=== PATIENT | female | born 1960 | race Caucasian/White ===

== ENCOUNTER 2023-11-10 10:20 | Outpatient (AMB) | payer OTHER, SELFPAY ==
--- NOTE | 2023-11-10 10:23 | MHC.PC.OV ---
Vital Signs 11/10/23 10:24 Height 5 ft 6 in Weight 232 lb BMI 37.4 BP 134/78 Blood Pressure Location Rt brachial Position Sitting Pulse 84 Pulse Source Pulse Oximeter Pulse Oximetry (%) 96 Oxygen Delivery Method Room Air Intake Visit Reasons: Est Care Intake Note: Pt is here today for New patient visit. Allergies No Known Allergies [No Known Allergies*] Allergy (Unverified 11/10/23 10:28) Medication List - Last Reconciled 11/10/23 by Solange Galaviz MD albuterol 90 mcg/actuation mcg inhalation amoxicillin 800 mg PO BID Tobacco use date assessed: 11/10/23 Fall risk assessment: No Falls in past year Last assessed Fall Risk: 11/10/23 Dental Screening Dental Screen Date: 11/10/23 Did you have a dental visit in the last 12 months?: Yes Did you have a dental problem in the last 6 months where you did not have access to dental care?: No Was dental information given to patient?: Patient has dentist HPI Est Care HPI Details Pt presents for [employer] visit. Past medical history includes depression with hospitalization about 10 years ago currently not on medications but established with a psychiatrist. Type 2 diabetes diet controlled, patient has stopped taking her medications 2 years ago. History of asthma patient has not been using inhalers but denies shortness or breath wheezing or cough. Patient complains of chronic bilateral lateral thigh pain worse when walking longer distance. She denies groin pain or lower back pain. Patient has been riding her bike regularly and lost 30 lb in the last 6 months trying to eat healthier and increasing physical activity. [facility] Surgical History (Updated 11/10/23 @ 11:18 by Solange Galaviz MD) History of bilateral carpal tunnel release Family History Father Stroke Mother Lung cancer Social History (Updated 11/10/23 @ 11:19 by Solange Galaviz MD) Household Members Other:: lives alone, 2 adult children, on mental health disability, Housing: House Patient Tobacco Use Status: Never used Tobacco e-Cigarette/Vaping Use: Never Used service: No Current occupational status: disabled Cognitive needs: No Hearing needs: No Vision needs: No Questionnaire PHQ-9 Over the last 2 weeks, how often have you been bothered by any of the following problems? 1. Little interest or pleasure in doing things: not at all 2. Feeling down, depressed, or hopeless: not at all 3. Trouble falling or staying asleep, or sleeping too much: not at all 4. Feeling tired or having little energy: several days 5. Poor appetite or overeating: not at all 6. Feeling bad about yourself - or that you are a failure or have let yourself or your family down: not at all 7. Trouble concentrating on things, such as reading the newspaper or watching television: not at all 8. Moving or speaking so slowly that other people could have noticed. Or the opposite - being so fidgety or restless that you have been moving around a lot more than usual: not at all 9. Thoughts that you would be better off or of hurting yourself in some way: not at all Total score: 1 Depression Screening Interpretation: Negative Depression Screening Done: Yes 76897 - PHQ-9 Billing: Yes Source: Developed by Drs. Jerald Chu, Yris Gao, Amadeo Goldman and colleagues, with an educational andi from [employer]. Thrive Questionnaire Date Thrive assessed: 11/10/23 I am a: Patient What is your living situation today?: I have a steady place to live Within the past 12 months, did the food you bought not last and you didn't have the money to get more?: Never true Within the past 12 months, did you worry whether your food would run out before you got money to buy more?: Never true Do you have trouble paying for medicines?: I choose not to answer this question Do you have trouble getting transportation to medical appointments?: No Do you have trouble paying your heating and electricity bill?: No Do you have trouble taking care of your child, family member or friend?: No Do you have trouble with day-to-day activities such as bathing, preparing meals, shopping, managing finances, etc.?: No Are you currently unemployed and looking for a job?: Yes Are you interested in more education?: No Please select the resources that you would like help with: Housing/Long Term Currently or been in a relationship where the following occur: No concerns reported THRIVE Score: 0 AUDIT C Alcohol Use Questionnaire (AUDIT-C) 1. How often do you have a drink containing alcohol?: Never 3. How often do you have six or more drinks on one occasion?: Never Total Score: 0 NED-7 AMB Questionnaire NED-7 Date NED - 7 assessed: 11/10/23 Feeling nervous, anxious, or on edge: 0 = Not at all Not being able to stop or control worryin = Not at all Worrying too much about different things: 0 = Not at all Trouble relaxin = Not at all Being so restless that it is hard to sit still: 0 = Not at all Becoming easily annoyed or irritable: 0 = Not at all Feeling afraid as if something awful might happen: 0 = Not at all Total NED-7 score (0-4 normal; 5-9 mild; 10-14 moderate; 15-21 severe): 0 Source: Developed by Drs. Jerald Chu, Yris Gao, Amadeo Goldman and colleagues, with an educational andi from [employer]. NED-7 Assessment Billing NED-7 Assessment Tool: NED-7 Assessment 91322 Review of Systems Const All systems reviewed & are unremarkable except as noted in HPI and below Reports no additional complaints Eyes Reports no additional complaints ENT Reports no additional complaints Card Reports no additional complaints Resp Reports no additional complaints GI Reports no additional complaints Reports no additional complaints Physical exam (Primary Care) Vital Signs: Last Vital Signs Pulse 84 11/10/23 10:24 BP 134/78 11/10/23 10:24 Pulse Ox 96 11/10/23 10:24 Oxygen Delivery Method Room Air 11/10/23 10:24 BMI result Body Mass Index 37.4 Tobacco/Smoking Status: Tobacco use Status Tobacco use date assessed 11/10/23 11/10/23 10:35 Patient Tobacco Use Status Never used Tobacco 11/10/23 10:35 e-Cigarette/Vaping Use Never Used 11/10/23 10:35 PHQ-9: PHQ-9 Score PHQ-9: Total score 1 11/10/23 10:35 Depression Screening Interpretation: Negative Thrive Assessment: Date of Thrive Assessment Date Thrive assessed 11/10/23 11/10/23 10:35 Currently or been in a relationship where the following occur: No concerns reported Const General: no acute distress HENMT Head: Yes normal to inspection Ears: hearing grossly normal bilaterally General nose exam: Normal external nose present Face and sinus: Yes normal facial exam Mouth: Normal oral and palatal mucosa present Throat: Yes posterior oropharynx normal Eyes General: appearance normal, both eyes and all related structures Neck Neck: Yes no lymphadenopathy and Yes supple Resp Effort & Inspection: normal respiratory effort Auscultation: clear to auscultation bilaterally Cardio Rhythm: regular rhythm Heart sounds: S1 normal heart sound present and S2 normal heart sound present GI Inspection: Yes normal to inspection Palpation (GI): Soft to palpation Percussion: Yes normal to percussion Auscultation: normal bowel sounds Extrem Other: There is decreased range of motion of both hips lateral trochanteric area reproducible tenderness, Assessment and Plan Assessment & Plan (1) Annual physical exam: Code(s): Z00.00 - Encounter for general adult medical examination without abnormal findings Plan: well balanced diet, regular exercise, patient will have a fasting blood work today. (2) Depression: Comment: hospitalized 2013, stopped taking meds, f/u with psychiatry Code(s): F32.A - Depression, unspecified Plan: f/u with psychiatry (3) Hyperglycemia: Code(s): R73.9 - Hyperglycemia, unspecified Plan: ADA diet, regular exercise, weight loss discussed (4) Trochanteric bursitis of both hips: Code(s): M70.61 - Trochanteric bursitis, right hip; M70.62 - Trochanteric bursitis, left hip Plan: refer to PT (5) Hx of colonoscopy: Comment: 2016 negative Code(s): Z98.890 - Other specified postprocedural states Orders: Orders Comprehensive [place]. Panel Fast Today R73.9 - Hyperglycemia, unspecified, Z00.00 - Encounter for general adult medical examination without abnormal findings Lipid Panel Today R73.9 - Hyperglycemia, unspecified, Z00.00 - Encounter for general adult medical examination without abnormal findings TSH reflex Free T4 Today R73.9 - Hyperglycemia, unspecified, Z00.00 - Encounter for general adult medical examination without abnormal findings Complete Blood Count Auto Diff Today R73.9 - Hyperglycemia, unspecified, Z00.00 - Encounter for general adult medical examination without abnormal findings Hemoglobin A1c Today R73.9 - Hyperglycemia, unspecified, Z00.00 - Encounter for general adult medical examination without abnormal findings Microalbumin, Random (w Creat) Today R73.9 - Hyperglycemia, unspecified, Z00.00 - Encounter for general adult medical examination without abnormal findings UA w Microscopic Today R73.9 - Hyperglycemia, unspecified, Z00.00 - Encounter for general adult medical examination without abnormal findings Coding Level of Care Code New Pt Level 4 (83329) Diagnoses Annual physical exam Z00.00 Depression F32.A Hyperglycemia R73.9 Trochanteric bursitis of both hips M70.61; M70.62 Hx of colonoscopy Z98.890 Additional Codes NED-7 Assessment Billing - NED-7 Assessment Tool: NED-7 Assessment 77770 ([id number])
[2023-11-10 10:24] VITALS: BP 134/78; PULSE 84; O2SAT 96; BMI 37.4
== END 2023-11-10 11:33 | disposition home or self-care (01) ==
PROVIDERS: PCP Internal Medicine; Visit Provider Internal Medicine
DX: R73.9 Hyperglycemia, unspecified (principal); F32.A Depression, unspecified; M70.61 Trochanteric bursitis, right hip; M70.62 Trochanteric bursitis, left hip; Z98.890 Other specified postprocedural states
CPT/HCPCS: 99204

== ENCOUNTER 2023-11-10 11:36 | Outpatient (REF) | payer OTHER, SELFPAY ==
[2023-11-10 13:05] LABS: MANUAL DIFF FLAG NO
[2023-11-10 13:18] LABS: Basophils Absolute Auto 0.1 X10*3/uL (0.0-0.2); Basophils Percent Auto 1.1 % (0-2); Eosinophils Absolute Auto 0.2 X10*3/uL (0.0-0.4); Eosinophils Percent Auto 3.2 % (0-4); Hematocrit 44.4 % (37.0-47.0); Imm Gran Abs Auto 0.01 X10*3/uL (0.00-0.03); Imm Gran Pct Auto 0.2 % (0.0-0.4); Lymphocytes Absolute Auto 1.4 X10*3/uL (1.2-4.9); Lymphocytes Percent Auto 24.2 % (20-40); Mean Corpuscular HGB Conc 33.8 g/dl (31.0-35.0); Mean Corpuscular Hemoglobin 28.8 pg (27.0-33.0); Mean Corpuscular Volume 85.2 fL (80.0-98.0); Mean Platelet Volume 10.7 fL (9.4-12.3); Monocytes Absolute Auto 0.4 X10*3/uL (0.1-1.2); Monocytes Percent Auto 7.5 % (2-11); Neutrophils Absolute Auto 3.6 x10*3/uL (2.0-8.3); Neutrophils Percent Auto 63.8 % (45-73); Platelet Count 157 X10*3/uL (160-400); Red Blood Count 5.21 X10*6/uL (4.20-5.50); Red Cell Distribution Width 13.5 % (11.0-16.0); White Blood Count 5.6 X10*3/uL (4.8-10.8)
[2023-11-10 13:40] LABS: Alanine Aminotransferase 22 U/L (0-31); Albumin Level 4.6 g/dL (3.5-5.0); Alkaline Phosphatase 91 U/L (39-117); Anion Gap 13 (12-20); Aspartate Amino Transferase 38 U/L (5-31); Bilirubin Total 0.9 mg/dL (0.0-1.0); Blood Urea Nitrogen 12 mg/dL (9-16); Carbon Dioxide 26 mmol/L (22-29); Chloride 104 mmol/L (96-108); Cholesterol 346 mg/dL (<200); Estimated Glomerular Filt Rate > 60; Glucose Fasting 114 mg/dL (60-99); HDL Cholesterol 66 mg/dL (>40); LDL Cholesterol Calculated 250 mg/dL (<100); Sodium 139 mmol/L (135-145); Total Protein 8.1 g/dL (6.5-8.0); Triglycerides 154 mg/dL (<150)
[2023-11-10 13:44] LABS: Estimated Average Glucose 131 mg/dL; Hemoglobin A1c % 6.2 % (<6.0)
[2023-11-10 13:46] LABS: TSH reflex Free T4 49.74 uIU/mL (0.32-4.0)
[2023-11-10 14:44] LABS: Free T4 (Free Thyroxine) < 0.42 ng/dL (0.71-1.85)
== END 2023-11-10 11:37 | disposition home or self-care (01) ==
LOC: HO.HMGCLDS 11:36
PROVIDERS: PCP Internal Medicine; Visit Provider Internal Medicine
DX: Z00.00 Encounter for general adult medical examination without abnormal findings (principal); R73.9 Hyperglycemia, unspecified
CPT/HCPCS: 36415; 80053; 80061; 83036; 84439; 84443; 85025

== ENCOUNTER 2023-11-11 08:30 | Outpatient (REF) | payer OTHER, SELFPAY ==
[2023-11-11 13:28] LABS: Appearance Urine Clear; Color Urine Yellow; Glucose Urine UA Negative (Negative); Leukocyte Esterase Urine Negative (Negative); Nitrite Urine Negative (Negative); PH 5.5 (5.0-9.0); Urine Blood Negative (Negative); Urine Ketones Negative (Negative); Urine Protein Negative (Neg-Trace)
[2023-11-11 13:31] LABS: Bacteria Urine None Seen (None Seen); Hyaline Casts Urine 0-2 /LPF (0-2); RBC Urine 0-2 /HPF (0-2); Squamous Epithelial Cell Urine 0-2 /HPF (0-2); WBC Urine 0-5 /HPF (0-5)
[2023-11-11 14:34] LABS: Creatinine Urine 45.69 mg/dL; Microalbum/Creatinine Ratio Ur 76.6 ug/mg cr (<30)
== END 2023-11-11 08:31 | disposition home or self-care (01) ==
LOC: HO.HMGCLNP 08:30
PROVIDERS: PCP Internal Medicine; Visit Provider Internal Medicine
DX: Z00.00 Encounter for general adult medical examination without abnormal findings (principal); R73.9 Hyperglycemia, unspecified
CPT/HCPCS: 81001; 82043; 82570

== ENCOUNTER 2023-12-24 09:32 | Outpatient (REF) | payer OTHER, SELFPAY ==
[2023-12-24 14:31] LABS: Cholesterol 283 mg/dL (<200); HDL Cholesterol 63 mg/dL (>40); LDL Cholesterol Calculated 193 mg/dL (<100); TSH reflex Free T4 5.57 uIU/mL (0.32-4.0); Triglycerides 139 mg/dL (<150)
[2023-12-24 15:07] LABS: Free T4 (Free Thyroxine) 0.87 ng/dL (0.71-1.85)
== END 2023-12-24 09:33 | disposition home or self-care (01) ==
LOC: HO.HMGCLDS 09:32
PROVIDERS: PCP Internal Medicine; Visit Provider Internal Medicine
DX: E03.9 Hypothyroidism, unspecified (principal); E78.5 Hyperlipidemia, unspecified
CPT/HCPCS: 36415; 80061; 84439; 84443

== ENCOUNTER 2023-12-26 07:04 | Outpatient (REF) | payer OTHER, SELFPAY ==
--- NOTE | ~2023-12-26 | MR_ITS ---
EXAMINATION: MR LUMBAR SPINE WITHOUT CONTRAST CLINICAL INFORMATION: Difficulty walking. Lower extremity weakness. COMPARISON: None available. TECHNIQUE: MRI of the lumbar spine was obtained using routine sequences without contrast. FINDINGS: Last rib-bearing vertebra labeled T12. Multilevel marginal osteophyte formation and disc desiccation more conspicuous at L5-S1. Moderate type II endplate changes, L5-S1. Modic type I endplate changes, L1-2. Bone marrow STIR signal at the endplates of L1 to. Focal hyperintense T2 signal in the posterior intervertebral disc L4-5 likely annular fissure. Grade 1 retrolisthesis, L1-2. Conus medullaris ends at pedicle of L1 with normal signal. T12-L1: No compression upon the neural elements. L1-2: Broad-based disc bulging. Facet joint hypertrophy. Reduced AP diameter of the thecal sac and the neural foramina. No compression upon neural elements. L2-3: Broad-based disc bulging. Facet joint and ligamentum flavum hypertrophy. Reduced AP diameter of the thecal sac and neuroforamina encroaching the neural elements. L3-4: Broad-based disc bulging. Facet joint and ligamentum flavum hypertrophy. CSF effacement of the thecal sac and central spinal canal stenosis encroaching likely compressing the neural elements. Bilateral neuroforamina narrowing encroaching the exiting roots, left greater than the right side. L4-5: Broad-based disc bulging. Focal hyperintense T2 signal in the disc likely annular fissure. Bilateral facet hypertrophy. Reduced AP diameter of the thecal sac and bilateral neuroforamina narrowing encroaching the neural elements. L5-S1: Broad-based disc bulging abutting the S1 nerve roots on the lateral recesses. Facet joint hypertrophy. Bilateral neuroforamina stenosis encroaching the exiting roots. No prevertebral compartment hematoma, mass or fluid collection. MR/MR lumbar spine wo con IMPRESSION: Multilevel lumbar spondylosis more conspicuous at L3-4 and to a lesser extent L4-5 and L5-S1 resulting in central spinal canal stenosis at L3-4 encroaching likely compressing the neural elements of the thecal sac and the exiting nerve roots. Electronically signed by: Robb Mcgregor MD 01/27/2024 10:11 AM EDT
== END 2023-12-26 07:05 | disposition home or self-care (01) ==
LOC: HO.MRI 07:04
PROVIDERS: PCP Internal Medicine; Visit Provider Internal Medicine
DX: M48.061 Spinal stenosis, lumbar region without neurogenic claudication (principal)
CPT/HCPCS: 72148

== ENCOUNTER → 2023-12-26 07:14 | Outpatient (BNV) | payer OTHER, SELFPAY | PROVIDERS: PCP Internal Medicine; Visit Provider Radiology Diagnostic Radiology | DX: R53.1 Weakness (principal) | CPT/HCPCS: 72148 ==

== ENCOUNTER 2024-01-09 10:11 | Outpatient (AMB) | payer OTHER, SELFPAY ==
--- NOTE | 2024-01-09 10:14 | A.OFFPC_ITS ---
Vital Signs 01/09/24 10:18 Height 5 ft 6 in Weight 233 lb BMI 37.6 BP 124/78 Blood Pressure Location Rt brachial Position Sitting Pulse 90 Pulse Source Pulse Oximeter Pulse Oximetry (%) 95 Oxygen Delivery Method Room Air Intake Visit Reasons: 1 month Intake Note: Pt is here today for 1 month follow up visit. Allergies No Known Allergies [No Known Allergies*] Allergy (Unverified 11/10/23 10:28) Medication List - Last Reconciled 01/09/24 by Solange Galaviz MD albuterol 90 mcg/actuation mcg inhalation amoxicillin 800 mg PO BID levothyroxine 75 mcg PO DAILY Tobacco use date assessed: 11/10/23 Dental Screening Dental Screen Date: 11/10/23 HPI 1 month HPI Details Patient presents for the follow-up. She complains of chronic difficulty with the balance walking with a limp because of left leg intermittent pain and weakness. She has been taking levothyroxine for hypothyroidism and using fluticasone with salmeterol once a day usually in the fall months [facility] Surgical History History of bilateral carpal tunnel release Family History Father Stroke Mother Lung cancer Social History Household Members Other:: lives alone, 2 adult children, on mental health disability, Housing: House Patient Tobacco Use Status: Never used Tobacco e-Cigarette/Vaping Use: Never Used service: No Current occupational status: disabled Cognitive needs: No Hearing needs: No Vision needs: No Questionnaire Thrive Questionnaire Date Thrive assessed: 11/10/23 NED-7 AMB Questionnaire NED-7 Date NED - 7 assessed: 11/10/23 Source: Developed by Drs. Jerald Chu, Yris Gao, Amadeo Goldman and colleagues, with an educational andi from [employer]. Review of Systems Const All systems reviewed & are unremarkable except as noted in HPI and below ENT Reports no additional complaints Card Reports no additional complaints Resp Reports no additional complaints GI Reports no additional complaints Reports no additional complaints Physical exam (Primary Care) Vital Signs: Last Vital Signs Pulse 90 01/09/24 10:18 BP 124/78 01/09/24 10:18 Pulse Ox 95 01/09/24 10:18 Oxygen Delivery Method Room Air 01/09/24 10:18 BMI result Body Mass Index 37.6 Tobacco/Smoking Status: Tobacco use Status Tobacco use date assessed 11/10/23 01/09/24 10:14 Patient Tobacco Use Status Never used Tobacco 01/09/24 10:14 e-Cigarette/Vaping Use Never Used 01/09/24 10:14 Thrive Assessment: Date of Thrive Assessment Date Thrive assessed 11/10/23 01/09/24 10:14 Const General: no acute distress HENMT Ears: hearing grossly normal bilaterally Face and sinus: Yes normal facial exam Throat: Yes posterior oropharynx normal Eyes General: appearance normal, both eyes and all related structures Neck Neck: Yes no lymphadenopathy and Yes supple Resp Effort & Inspection: normal respiratory effort Auscultation: clear to auscultation bilaterally Cardio Rhythm: regular rhythm Heart sounds: S1 normal heart sound present and S2 normal heart sound present GI Inspection: Yes normal to inspection Palpation (GI): Soft to palpation Percussion: Yes normal to percussion Auscultation: normal bowel sounds Coding Level of Care Code Est Pt Level 4 (11546) Diagnoses Left hip pain M25.552 Hypothyroid E03.9 Hyperlipidemia E78.5 Seasonal asthma J45.998 Assessment & Plan Assessment & Plan (1) Left hip pain: Code(s): M25.552 - Pain in left hip Category: Medical Plan: For chronic left leg pain and weakness x-ray of both hips will be obtained patient will be referred to physical therapy (2) Hypothyroid: Code(s): E03.9 - Hypothyroidism, unspecified Category: Medical Plan: Increase levothyroxine to 88 mcg check TSH in 2 months (3) Hyperlipidemia: Comment: Patient refused to take medications, she will continue low-cholesterol diet Code(s): E78.5 - Hyperlipidemia, unspecified Category: Medical Plan: Low-cholesterol diet discussed with the patient (4) Seasonal asthma: Comment: Uses Breo only in the fall months Code(s): J45.998 - Other asthma Category: Medical Plan: Continue inhaler as needed Orders: Orders Comprehensive [place]. Panel Fast 2 Months E03.9 - Hypothyroidism, unspecified, E78.5 - Hyperlipidemia, unspecified TSH reflex Free T4 2 Months E03.9 - Hypothyroidism, unspecified, E78.5 - Hyperlipidemia, unspecified Comprehensive [place]. Panel Fast 6 Months E03.9 - Hypothyroidism, unspecified, E78.5 - Hyperlipidemia, unspecified, R73.9 - Hyperglycemia, unspecified Lipid Panel 6 Months E03.9 - Hypothyroidism, unspecified, E78.5 - Hyperlipidemia, unspecified, R73.9 - Hyperglycemia, unspecified Complete Blood Count Auto Diff 6 Months E03.9 - Hypothyroidism, unspecified, E78.5 - Hyperlipidemia, unspecified, R73.9 - Hyperglycemia, unspecified TSH reflex Free T4 6 Months E03.9 - Hypothyroidism, unspecified, E78.5 - Hyperlipidemia, unspecified, R73.9 - Hyperglycemia, unspecified Microalbumin, Random (w Creat) 6 Months E03.9 - Hypothyroidism, unspecified, E78.5 - Hyperlipidemia, unspecified, R73.9 - Hyperglycemia, unspecified XR hips PATY min 3V Today M25.552 - Pain in left hip PT Evaluation and Treatment Today M25.552 - Pain in left hip Hemoglobin A1c 2 Months E03.9 - Hypothyroidism, unspecified, E78.5 - Hyperlipidemia, unspecified Hemoglobin A1c 6 Months E03.9 - Hypothyroidism, unspecified, E78.5 - Hyperlipidemia, unspecified, R73.9 - Hyperglycemia, unspecified Medications: New levothyroxine 88 mcg PO DAILY 90 tabs 0RF fluticasone propion-salmeterol 100-50 mcg/dose 1 inh inhalation DAILY 60 ea 1RF albuterol sulfate 90 mcg/actuation 2 puffs inhalation Q6H PRN 8.5 grams 2RF shortness of breath or wheezing Discontinued levothyroxine Discontinued Reason: Doctor's Order 75 mcg PO DAILY 90 tabs 0RF
[2024-01-09 10:18] VITALS: BP 124/78; PULSE 90; O2SAT 95; BMI 37.6
== END 2024-01-09 10:59 | disposition home or self-care (01) ==
LOC: HO.HMCC 10:11
PROVIDERS: PCP Internal Medicine; Visit Provider Internal Medicine
DX: M25.552 Pain in left hip (principal); E03.9 Hypothyroidism, unspecified; E78.5 Hyperlipidemia, unspecified; J45.998 Other asthma

== ENCOUNTER → 2024-01-09 10:11 | Outpatient (BNVA) | payer OTHER, SELFPAY | PROVIDERS: PCP Internal Medicine; Visit Provider Internal Medicine | DX: M25.552 Pain in left hip (principal); E03.9 Hypothyroidism, unspecified; E78.5 Hyperlipidemia, unspecified; J45.998 Other asthma | CPT/HCPCS: 99212 ==

== ENCOUNTER 2024-01-09 11:01 | Outpatient (REF) | payer OTHER, SELFPAY ==
--- NOTE | ~2024-01-09 | XR_ITS ---
EXAMINATION: XR BILATERAL HIPS WITH PELVIS 4 VIEWS CLINICAL INFORMATION: Pain in left hip M25.552. COMPARISON: None available TECHNIQUE: AP view of the pelvis and single views of each hip were obtained. FINDINGS: No fracture. Alignment is anatomic. Joint space narrowing and osteophyte formation is seen within the bilateral hip joints consistent with mild osteoarthritis. Sacroiliac joints and pubic symphysis are normal. No abnormal soft tissue calcifications. 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 Electronically signed by: Tobias Woods MD 03/16/2024 11:03 AM MARCEL GORDILLO
== END 2024-01-09 11:02 | disposition home or self-care (01) ==
LOC: HO.HMGCX 11:01
PROVIDERS: PCP Internal Medicine; Visit Provider Internal Medicine
DX: M25.552 Pain in left hip (principal)
CPT/HCPCS: 73522

== ENCOUNTER 2024-03-11 08:00 | Outpatient (RCR) | payer OTHER, SELFPAY ==
--- NOTE | 2024-02-10 10:04 | MHC.PT.EP ---
[facility] [place] Office [place] Office [place] Office [address] [phone] F: [phone] F: [phone] F: [phone] F: [phone] Physical Therapy Plan of Care Date of Evaluation: 02/10/24 Date of Surgery: Diagnosis: L hip pain Assessment: Patient is a 63 year old R handed female who presents with s/s consistent with L hip pain. She works with daily job demands including [employer] employee. Patient past medical history includes Carpal Tunnel release. Current impairments include pain, balance, ROM, flexibility, strength, activity tolerance and functional mobility. Functional limitations include decreased ability to walk, stand, transfer, squat, and negotiate stairs. Patient is motivated with good rehab potential. Skilled PT will address impairments and functional limitations in order to achieve goals. Frequency and Duration: The patient will be seen 2x/week for 5 weeks Short Term Goals: I with HEP- 2 weeks AROM ER b/l 40 - 3 weeks AROM flexion 105 - 3 weeks Able to walk pain free 10 minutes - 3 weeks Pest Technician Goals: LE strength 4+/5 grossly - 5 weeks Able to walk pain free 20 minutes - 5 weeks LEFS 65/80 - 5 weeks Max pain with daily activities 2/10 - 5 weeks Treatment Plan: Modalities to reduce pain, spasms and effusion. Manual therapy to restore motion and function. Therapeutic exercise to improve strength and flexibility. Neuromuscular re-education for posture and balance. Therapeutic activities to return to functional activities of daily living. Electronically signed by: Pato Hood, PT Please sign and return to therapist. Thank you for your referral.
--- NOTE | 2024-06-18 08:35 | MHC.PT.DC ---
[facility] [place] Office [place] Office [place] Office [address] Artis [address] [phone] F: [phone] F: [phone] F: [phone] F: [phone] Physical Therapy Discharge Report Diagnosis: L hip pain Date of Surgery: Date of Evaluation: 02/10/24 Date of Discharge: 03/30/24 Treatments to Date: 8 Cancellations to Date: No Shows to Date: Discharge Status: Improved Function Independent with HEP Discharge Summary: 03/11/24: pt I with HEP. AROM ER 40. strength 4/5 grossly. Able to walk 10 minutes with 2/10 pain. Max pain with daily activities 4/10. She is happy with progress and willing to continued exclusively with HEP. we will d/c to HEP at this time. 03/09/24: pt progressing well with skilled PT. able to manage pain although pain is still present to a degree. update HEP and d/c to HEP Nv. 03/02/24: pt still with pain with initial stance. no adverse reactions from above program but progress does seem slow. 02/24/24: pt progressing well with skilled PT. responding well to current program. progress as tolerated. 02/19/24: pt not feeling well today so we held progression. we will attempt NV. 02/17/24: pt progressing well with skilled PT. no adverse reactions. improved ROM and less pain so far. 02/12/24: pt progressed with strength and stretching. good response. reviewed HEP which pt expressed compliance. Patient is a 63 year old R handed female who presents with s/s consistent with L hip pain. She works with daily job demands including [employer] employee. Patient past medical history includes Carpal Tunnel release. Current impairments include pain, balance, ROM, flexibility, strength, activity tolerance and functional mobility. Functional limitations include decreased ability to walk, stand, transfer, squat, and negotiate stairs. Patient is motivated with good rehab potential. Skilled PT will address impairments and functional limitations in order to achieve goals. Electronically signed by: Pato Hood, PT Please sign and return to therapist. Thank you for your referral.
== END 2024-06-18 08:35 | disposition home or self-care (01) ==
LOC: HO.PTCHIC 08:00
PROVIDERS: PCP Internal Medicine; Visit Provider Internal Medicine
DX: M25.552 Pain in left hip (principal)
CPT/HCPCS: 97110; 97161

== ENCOUNTER 2024-07-05 08:52 | Outpatient (REF) | payer MEDICARE, SELFPAY ==
[2024-07-05 10:28] LABS: MANUAL DIFF FLAG NO
[2024-07-05 10:51] LABS: Basophils Absolute Auto 0.1 X10*3/uL (0.0-0.2); Basophils Percent Auto 0.9 % (0-2); Eosinophils Absolute Auto 0.2 X10*3/uL (0.0-0.4); Eosinophils Percent Auto 4.1 % (0-4); Hematocrit 43.5 % (37.0-47.0); Hemoglobin 14.7 g/dl (12.0-16.0); Imm Gran Abs Auto 0.02 X10*3/uL (0.00-0.03); Imm Gran Pct Auto 0.4 % (0.0-0.4); Lymphocytes Absolute Auto 1.9 X10*3/uL (1.2-4.9); Mean Corpuscular HGB Conc 33.8 g/dl (31.0-35.0); Mean Corpuscular Hemoglobin 28.7 pg (27.0-33.0); Mean Platelet Volume 10.9 fL (9.4-12.3); Monocytes Absolute Auto 0.4 X10*3/uL (0.1-1.2); Neutrophils Absolute Auto 2.7 x10*3/uL (2.0-8.3); Neutrophils Percent Auto 50.6 % (45-73); Platelet Count 179 X10*3/uL (160-400); Red Blood Count 5.12 X10*6/uL (4.20-5.50); White Blood Count 5.4 X10*3/uL (4.8-10.8)
[2024-07-05 10:55] LABS: Estimated Average Glucose 148 mg/dL; Hemoglobin A1C 200.3034 umol/L; Hemoglobin A1c % 6.8 % (<6.0); Total Hemoglobin (HGBA1C) 3926.1385 umol/L
[2024-07-05 11:17] LABS: Creatinine Urine 23.75 mg/dL; Microalbum/Creatinine Ratio Ur 75.7 ug/mg cr (<30)
[2024-07-05 11:32] LABS: Alanine Aminotransferase 28 U/L (0-31); Albumin Level 4.2 g/dL (3.5-5.0); Alkaline Phosphatase 89 U/L (39-117); Anion Gap 12 (12-20); Aspartate Amino Transferase 37 U/L (5-31); Bilirubin Total 0.5 mg/dL (0.0-1.0); Blood Urea Nitrogen 13 mg/dL (9-16); Calcium 9.4 mg/dL (8.4-10.2); Carbon Dioxide 25 mmol/L (22-29); Chloride 108 mmol/L (96-108); Cholesterol 286 mg/dL (<200); Estimated Glomerular Filt Rate > 60; Glucose Fasting 124 mg/dL (60-99); HDL Cholesterol 55 mg/dL (>40); LDL Cholesterol Calculated 193 mg/dL (<100); Potassium 4.5 mmol/L (3.3-5.1); Sodium 140 mmol/L (135-145); TSH reflex Free T4 6.41 uIU/mL (0.32-4.0); Total Protein 7.3 g/dL (6.5-8.0); Triglycerides 190 mg/dL (<150)
[2024-07-05 12:03] LABS: Free T4 (Free Thyroxine) 0.89 ng/dL (0.71-1.85)
== END 2024-07-05 08:53 | disposition home or self-care (01) ==
LOC: HO.HMGCLDS 08:52
PROVIDERS: PCP Internal Medicine; Visit Provider Internal Medicine
DX: R73.9 Hyperglycemia, unspecified (principal); E78.5 Hyperlipidemia, unspecified; E03.9 Hypothyroidism, unspecified
CPT/HCPCS: 36415; 80053; 80061; 82043; 82570; 83036; 84439; 84443; 85025

== ENCOUNTER 2024-07-12 11:02 | Outpatient (AMB) | payer MEDICARE, SELFPAY ==
[2024-07-12 11:05] VITALS: BP 124/76; PULSE 96; TEMP 36.8; O2SAT 96; BMI 39.5
--- NOTE | 2024-07-12 11:05 | MHC.PC.OV ---
Vital Signs 07/12/24 11:05 Height 5 ft 6 in Weight 245 lb BMI 39.5 BP 124/76 Blood Pressure Location Lt brachial Position Sitting Pulse 96 Pulse Source Pulse Oximeter Temp 98.2 F Temp Source Oral Pulse Oximetry (%) 96 Oxygen Delivery Method Room Air Intake Visit Reasons: 6 months f/up Intake Note: Pt is here today for 6 months follow up visit. Allergies No Known Allergies [No Known Allergies*] Allergy (Unverified 07/12/24 11:08) Tobacco use date assessed: 07/12/24 Fall risk assessment: No Falls in past year Last assessed Fall Risk: 07/12/24 Dental Screening Dental Screen Date: 07/12/24 Did you have a dental visit in the last 12 months?: No Did you have a dental problem in the last 6 months where you did not have access to dental care?: No Was dental information given to patient?: Patient declined HPI 6 months f/up HPI Details Patient presents for the follow-up of hypothyroidism diet-controlled diabetes stable on current medications PFSH Surgical History History of bilateral carpal tunnel release Family History Father Stroke Mother Lung cancer Social History Household Members Other:: lives alone, 2 adult children, on mental health disability, Housing: House Patient Tobacco Use Status: Never used Tobacco e-Cigarette/Vaping Use: Never Used service: No Current occupational status: disabled Cognitive needs: No Hearing needs: No Vision needs: No Questionnaire PHQ-9 Over the last 2 weeks, how often have you been bothered by any of the following problems? 1. Little interest or pleasure in doing things: not at all 2. Feeling down, depressed, or hopeless: not at all 3. Trouble falling or staying asleep, or sleeping too much: not at all 4. Feeling tired or having little energy: not at all 5. Poor appetite or overeating: not at all 6. Feeling bad about yourself - or that you are a failure or have let yourself or your family down: not at all 7. Trouble concentrating on things, such as reading the newspaper or watching television: not at all 8. Moving or speaking so slowly that other people could have noticed. Or the opposite - being so fidgety or restless that you have been moving around a lot more than usual: not at all 9. Thoughts that you would be better off or of hurting yourself in some way: not at all Total score: 0 Depression Screening Interpretation: Negative Depression Screening Done: Yes 86252 - PHQ-9 Billing: Yes Source: Developed by Drs. Jerald Chu, Yris Gao, Amadeo Goldman and colleagues, with an educational andi from [employer]. Thrive Questionnaire Date Thrive assessed: 07/12/24 I am a: Patient What is your living situation today?: I have a steady place to live Within the past 12 months, did the food you bought not last and you didn't have the money to get more?: Never true Within the past 12 months, did you worry whether your food would run out before you got money to buy more?: Never true Do you have trouble paying for medicines?: No Do you have trouble getting transportation to medical appointments?: No Do you have trouble paying your heating and electricity bill?: No Do you have trouble taking care of your child, family member or friend?: No Do you have trouble with day-to-day activities such as bathing, preparing meals, shopping, managing finances, etc.?: No Are you currently unemployed and looking for a job?: No Are you interested in more education?: No THRIVE Score: 0 NED-7 AMB Questionnaire NED-7 Date NED - 7 assessed: 07/12/24 Feeling nervous, anxious, or on edge: 0 = Not at all Not being able to stop or control worryin = Not at all Worrying too much about different things: 0 = Not at all Trouble relaxin = Not at all Being so restless that it is hard to sit still: 0 = Not at all Becoming easily annoyed or irritable: 0 = Not at all Feeling afraid as if something awful might happen: 0 = Not at all Total NED-7 score (0-4 normal; 5-9 mild; 10-14 moderate; 15-21 severe): 0 Source: Developed by Drs. Jerald Chu, Amadeo Ireneke and colleagues, with an educational andi from [employer]. NED-7 Assessment Billing NED-7 Assessment Tool: NED-7 Assessment 26317 Review of Systems Const All systems reviewed & are unremarkable except as noted in HPI and below Eyes Reports no additional complaints ENT Reports no additional complaints Card Reports no additional complaints Resp Reports no additional complaints GI Reports no additional complaints Reports no additional complaints Physical exam (Primary Care) Vital Signs: Last Vital Signs Temp 98.2 F 07/12/24 11:05 Pulse 96 07/12/24 11:05 BP 124/76 07/12/24 11:05 Pulse Ox 96 07/12/24 11:05 Oxygen Delivery Method Room Air 07/12/24 11:05 BMI result Body Mass Index 39.5 Tobacco/Smoking Status: Tobacco use Status Tobacco use date assessed 07/12/24 07/12/24 11:14 Patient Tobacco Use Status Never used Tobacco 07/12/24 11:14 e-Cigarette/Vaping Use Never Used 07/12/24 11:14 PHQ-9: PHQ-9 Score PHQ-9: Total score 0 07/12/24 11:14 Depression Screening Interpretation: Negative Thrive Assessment: Date of Thrive Assessment Date Thrive assessed 11/10/23 07/12/24 11:24 Const General: no acute distress HENMT Head: Yes normal to inspection Throat: Yes posterior oropharynx normal Neck Neck: Yes supple Resp Effort & Inspection: normal respiratory effort Auscultation: clear to auscultation bilaterally Cardio Rhythm: regular rhythm Heart sounds: S1 normal heart sound present and S2 normal heart sound present GI Inspection: Yes normal to inspection Palpation (GI): Soft to palpation Percussion: Yes normal to percussion Coding Level of Care Code Est Pt Level 4 (34708) Diagnoses Hypothyroid E03.9 Hyperlipidemia E78.5 Hyperglycemia R73.9 Additional Codes NED-7 Assessment Billing - NED-7 Assessment Tool: NED-7 Assessment 17921 ([id number]) PHQ-9 - 40512 - PHQ-9 Billing: Yes ([id number]) Assessment & Plan Assessment & Plan (1) Hypothyroid: Code(s): E03.9 - Hypothyroidism, unspecified Category: Medical Plan: Increase levothyroxine to 100 mcg a day check TSH and free T4 in 2 months (2) Hyperlipidemia: Comment: Patient refused to take medications, she will continue low-cholesterol diet Code(s): E78.5 - Hyperlipidemia, unspecified Category: Medical Plan: Continue low-cholesterol diet (3) Hyperglycemia: Code(s): R73.9 - Hyperglycemia, unspecified Category: Medical Plan: A1c is 6.8 today. ADA diet increase exercise weight loss discussed with the patient follow-up in 4 months with a fasting labs before Orders: Orders TSH reflex Free T4 2 Months E03.9 - Hypothyroidism, unspecified, E78.5 - Hyperlipidemia, unspecified, R73.9 - Hyperglycemia, unspecified Hemoglobin A1c 4 Months E03.9 - Hypothyroidism, unspecified, E78.5 - Hyperlipidemia, unspecified, R73.9 - Hyperglycemia, unspecified Comprehensive [place]. Panel Fast 4 Months E03.9 - Hypothyroidism, unspecified, E78.5 - Hyperlipidemia, unspecified, R73.9 - Hyperglycemia, unspecified TSH reflex Free T4 4 Months E03.9 - Hypothyroidism, unspecified, E78.5 - Hyperlipidemia, unspecified, R73.9 - Hyperglycemia, unspecified Medications: New levothyroxine 100 mcg PO DAILY 90 tabs 1RF Discontinued levothyroxine Discontinued Reason: Doctor's Order 88 mcg PO DAILY 90 tabs 0RF
== END 2024-07-12 12:08 | disposition home or self-care (01) ==
PROVIDERS: PCP Internal Medicine; Visit Provider Internal Medicine
DX: E03.9 Hypothyroidism, unspecified (principal); E78.5 Hyperlipidemia, unspecified; R73.9 Hyperglycemia, unspecified

== ENCOUNTER → 2024-07-12 11:02 | Outpatient (BNVA) | payer MEDICARE, SELFPAY | PROVIDERS: PCP Internal Medicine; Visit Provider Internal Medicine | DX: E03.9 Hypothyroidism, unspecified (principal); E11.65 Type 2 diabetes mellitus with hyperglycemia; E78.5 Hyperlipidemia, unspecified | CPT/HCPCS: 96127; 99212 ==

== ENCOUNTER 2025-02-04 09:13 | Outpatient (REF) | payer MEDICARE, MEDICAID, SELFPAY ==
[2025-02-04 11:12] LABS: Alanine Aminotransferase 27 U/L (0-31); Albumin Level 4.6 g/dL (3.5-5.0); Alkaline Phosphatase 96 U/L (39-117); Anion Gap 12 (12-20); Aspartate Amino Transferase 27 U/L (5-31); Blood Urea Nitrogen 19 mg/dL (9-16); Calcium 9.6 mg/dL (8.4-10.2); Carbon Dioxide 25 mmol/L (22-29); Chloride 107 mmol/L (96-108); Estimated Glomerular Filt Rate > 60; Potassium 4.3 mmol/L (3.3-5.1); Sodium 140 mmol/L (135-145); Total Protein 7.6 g/dL (6.5-8.0)
[2025-02-04 11:54] LABS: Free T4 (Free Thyroxine) 1.19 ng/dL (0.71-1.85)
== END 2025-02-04 09:14 | disposition home or self-care (01) ==
LOC: HO.HMGCLDS 09:13
PROVIDERS: PCP Internal Medicine; Visit Provider Internal Medicine
DX: E03.9 Hypothyroidism, unspecified (principal); E78.5 Hyperlipidemia, unspecified; R73.9 Hyperglycemia, unspecified
CPT/HCPCS: 36415; 80053; 83036; 84439; 84443

== ENCOUNTER 2025-03-14 08:37 | Outpatient (REF) | payer MEDICARE, MEDICAID, SELFPAY ==
[2025-03-14 12:32] LABS: Free T4 (Free Thyroxine) 0.99 ng/dL (0.71-1.85)
== END 2025-03-14 08:38 | disposition home or self-care (01) ==
LOC: HO.HMGCLDS 08:37
PROVIDERS: PCP Internal Medicine; Visit Provider Internal Medicine
DX: E03.9 Hypothyroidism, unspecified (principal); E78.5 Hyperlipidemia, unspecified; R73.9 Hyperglycemia, unspecified
CPT/HCPCS: 36415; 84439; 84443

== ENCOUNTER 2025-03-15 08:52 | Outpatient (AMB) | payer MEDICARE, MEDICAID, SELFPAY ==
[2025-03-15 08:59] VITALS: BP 134/82; PULSE 94; TEMP 36.7; O2SAT 97; BMI 37.8
--- NOTE | 2025-03-15 09:00 | MHC.PC.OV ---
Vital Signs 03/15/25 08:59 Height 5 ft 6 in Weight 234 lb BMI 37.8 BP 134/82 Blood Pressure Location Rt brachial Position Sitting Pulse 94 Pulse Source Pulse Oximeter Temp 98.1 F Temp Source Oral Pulse Oximetry (%) 97 Oxygen Delivery Method Room Air Intake Visit Reasons: FU RE Intake Note: Pt is here today for a follow up visit. Allergies No Known Allergies (No Known Allergies*) Allergy (Unverified 03/15/25 09:45) Medication List - Last Reconciled 03/15/25 by Solange Galaviz MD albuterol 90 mcg/actuation mcg inhalation albuterol sulfate 90 mcg/actuation 2 puffs inhalation Q6H PRN bupropion HCl XL 150 mg PO DAILY fluticasone propion-salmeterol 100-50 mcg/dose 1 inh inhalation DAILY levothyroxine 100 mcg PO DAILY Tobacco use date assessed: 03/15/25 Fall risk assessment: No Falls in past year Last assessed Fall Risk: 03/15/25 Dental Screening Dental Screen Date: 07/12/24 HPI FU RE HPI Details Pt presents for follow-up of diet-controlled diabetes, chronic asthma hypothyroidism chronic anxiety and depression. Patient is established with a counselor. She has started taking bupropion in the last month after upsetting event with her daughter. Patient is feeling better and denies suicide ideation , change in appetite or sleeping pattern. Patient complains of chronic neck stiffness and pain worse when turning her head to the side. She denies weakness or numbness in upper extremities PFSH Medical History (Updated 03/15/25 @ 20:12 by Solange Galaviz MD) DM type 2 (diabetes mellitus, type 2) Annual physical exam Hypothyroid Hyperlipidemia Depression Mammogram declined Surgical History (Updated 03/15/25 @ 10:36 by Solange Galaviz MD) Hx of colonoscopy History of bilateral carpal tunnel release Family History Father Stroke Mother Lung cancer Social History Household Members Other:: lives alone, 2 adult children, on mental health disability, Housing: House Patient Tobacco Use Status: Never used Tobacco e-Cigarette/Vaping Use: Never Used service: No Current occupational status: disabled Cognitive needs: No Hearing needs: No Vision needs: No Questionnaire Thrive Questionnaire Date Thrive assessed: 11/10/23 I am a: Patient What is your living situation today?: I have a steady place to live Within the past 12 months, did the food you bought not last and you didn't have the money to get more?: Never true Within the past 12 months, did you worry whether your food would run out before you got money to buy more?: Never true Do you have trouble paying for medicines?: I choose not to answer this question Do you have trouble getting transportation to medical appointments?: No Do you have trouble paying your heating and electricity bill?: No Do you have trouble taking care of your child, family member or friend?: No Do you have trouble with day-to-day activities such as bathing, preparing meals, shopping, managing finances, etc.?: No Are you currently unemployed and looking for a job?: Yes Are you interested in more education?: No Please select the resources that you would like help with: None Currently or been in a relationship where the following occur: No concerns reported THRIVE Score: 0 NED-7 AMB Questionnaire NED-7 Date NED - 7 assessed: 07/12/24 Source: Developed by Drs. Jerald Chu, Yris Gao, Amadeo Goldman and colleagues, with an educational andi from [employer]. Review of Systems Const All systems reviewed & are unremarkable except as noted in HPI and below ENT Reports no additional complaints Card Reports no additional complaints Resp Reports no additional complaints GI Reports no additional complaints Reports no additional complaints Physical exam (Primary Care) Vital Signs: Last Vital Signs Temp 98.1 F 03/15/25 08:59 Pulse 94 03/15/25 08:59 BP 134/82 03/15/25 08:59 Pulse Ox 97 03/15/25 08:59 Oxygen Delivery Method Room Air 03/15/25 08:59 BMI result Body Mass Index 37.8 Tobacco/Smoking Status: Tobacco use Status Tobacco use date assessed 03/15/25 03/15/25 09:49 Patient Tobacco Use Status Never used Tobacco 03/15/25 09:45 e-Cigarette/Vaping Use Never Used 03/15/25 09:45 Thrive Assessment: Date of Thrive Assessment Date Thrive assessed 11/10/23 03/15/25 09:45 Currently or been in a relationship where the following occur: No concerns reported Const General: no acute distress HENMT Head: Yes normal to inspection Mouth: Normal oral and palatal mucosa present Neck Neck: Yes supple Resp Effort & Inspection: normal respiratory effort Auscultation: clear to auscultation bilaterally Cardio Rhythm: regular rhythm Heart sounds: S1 normal heart sound present and S2 normal heart sound present GI Inspection: Yes normal to inspection Palpation (GI): Soft to palpation Percussion: Yes normal to percussion Results AMB Hemoglobin A1c AMB Hemoglobin A1c 6.9 % Last Edit by DARREL Jean Baptiste on 03/15/25 10:27 Results Reviewed Results Reviewed: Laboratory Last Values Hgb A1c (Clinic) 6.9 % (4.0-6.0) H 03/15/25 10:27 Coding Level of Care Code Est Pt Level 4 (19164) Diagnoses Hypothyroid E03.9 DM type 2 (diabetes mellitus, type 2) E11.9 Depression F32.A Seasonal asthma J45.998 Assessment & Plan Assessment & Plan (1) Hypothyroid: Code(s): E03.9 - Hypothyroidism, unspecified Category: Medical Plan: Continue levothyroxine (2) DM type 2 (diabetes mellitus, type 2): Comment: A1C 6.9 02/2025 Code(s): E11.9 - Type 2 diabetes mellitus without complications Category: Medical Plan: A1c is 6.9 today, ADA diet increase exercise weight loss discussed with the patient she declined medications. She will return in 4 months with a fasting labs before (3) Depression: Comment: hospitalized 2013, f/u with psychiatry Code(s): F32.A - Depression, unspecified Category: Medical Plan: Continue current medications and counseling (4) Seasonal asthma: Comment: Uses Breo only in the fall months Code(s): J45.998 - Other asthma Category: Medical Plan: Continue Breo Ellipta Orders: Orders Comprehensive [place]. Panel Fast 4 Months E03.9 - Hypothyroidism, unspecified, E11.9 - Type 2 diabetes mellitus without complications, R73.9 - Hyperglycemia, unspecified Hemoglobin A1c 4 Months E03.9 - Hypothyroidism, unspecified, E11.9 - Type 2 diabetes mellitus without complications, R73.9 - Hyperglycemia, unspecified Lipid Panel 4 Months E03.9 - Hypothyroidism, unspecified, E11.9 - Type 2 diabetes mellitus without complications, R73.9 - Hyperglycemia, unspecified TSH reflex Free T4 4 Months E03.9 - Hypothyroidism, unspecified, E11.9 - Type 2 diabetes mellitus without complications, R73.9 - Hyperglycemia, unspecified AMB Hemoglobin A1c Today Z13.9 - Encounter for screening, unspecified PT Evaluation and Treatment Today M54.2 - Cervicalgia Complete Blood Count Auto Diff 4 Months E03.9 - Hypothyroidism, unspecified, E11.9 - Type 2 diabetes mellitus without complications, R73.9 - Hyperglycemia, unspecified Microalbumin, Random (w Creat) 4 Months E03.9 - Hypothyroidism, unspecified, E11.9 - Type 2 diabetes mellitus without complications, R73.9 - Hyperglycemia, unspecified UA w Microscopic 4 Months E03.9 - Hypothyroidism, unspecified, E11.9 - Type 2 diabetes mellitus without complications, R73.9 - Hyperglycemia, unspecified
== END 2025-03-15 16:19 | disposition home or self-care (01) ==
LOC: HO.HMCC 08:53
PROVIDERS: PCP Internal Medicine; Visit Provider Internal Medicine
DX: E03.9 Hypothyroidism, unspecified (principal); E11.9 Type 2 diabetes mellitus without complications; F32.A Depression, unspecified; J45.998 Other asthma; Z13.9 Encounter for screening, unspecified

== ENCOUNTER → 2025-03-15 08:52 | Outpatient (BNVA) | payer MEDICARE, MEDICAID, SELFPAY | PROVIDERS: PCP Internal Medicine; Visit Provider Internal Medicine | DX: E11.9 Type 2 diabetes mellitus without complications (principal); F32.A Depression, unspecified; E03.9 Hypothyroidism, unspecified; J45.998 Other asthma; F41.9 Anxiety disorder, unspecified; M54.2 Cervicalgia; G89.29 Other chronic pain | CPT/HCPCS: 83036; 99212 ==